=== PATIENT | male | born 1995 | race Caucasian/White ===

== ENCOUNTER 2023-07-06 17:49 | Emergency (ER) | payer SELFPAY ==
[~2023-07-06] VITALS: Ht 175.3 cm; Wt 112.5 kg
[2023-07-06 18:25] VITALS: BP 134/85; PULSE 106; RESP 18; TEMP 97.3; O2SAT 97
[2023-07-06] MEDS: IBUPROFEN 600 MG TAB PO ONE (19:03)
[2023-07-06] MEDS: ONDANSETRON 4 MG ODT PO ONE (19:23)
[2023-07-06 19:50] VITALS: BP 134/85; PULSE 106; RESP 18; TEMP 97.3; O2SAT 97
[2023-07-06] MEDS ORDERED: BACI-418 TP (19:58)
[2023-07-06] MEDS ORDERED: IBUP-1842 PO (19:58)
== END 2023-07-06 20:04 | disposition home or self-care (01) ==
LOC: MED 17:49
DX: S02.2XXA Fracture of nasal bones, initial encounter for closed fracture (principal); M54.2 Cervicalgia; Z79.899 Other long term (current) drug therapy; W52.XXXA Crushed, pushed or stepped on by crowd or human stampede, initial encounter; Y93.64 Activity, baseball; Y92.89 Other specified places as the place of occurrence of the external cause; Y99.8 Other external cause status
CPT/HCPCS: 70160; 72050; 99284; Q0162